=== PATIENT | female | born 1960 | race Caucasian/White ===

== ENCOUNTER 2018-12-04 08:32 | Day surgery (SDC) | payer MEDICAID ==
[2018-12-04] MEDS ORDERED: LR 1,000 ML IV ONE (08:55)
[2018-12-04 09:21] VITALS: BP 135/84
--- NOTE | 2018-12-04 23:42 | CPEKG ---
Test Reason : OPEN Blood Pressure : / mmHG Vent. Rate : 106 BPM Atrial Rate : 106 BPM P-R Int : 123 ms QRS Dur : 086 ms QT Int : 341 ms P-R-T Axes : 035 044 037 degrees QTc Int : 453 ms Sinus tachycardia Confirmed by Aquiles Reyez ([id number]) on 12/04/2018 11:41:38 PM Referred By: Confirmed By:Aquiles Reyez
== END 2018-12-04 09:00 | disposition home or self-care (01) ==
LOC: FSGY 08:32
PROVIDERS: ATTEND Internal Medicine Gastroenterology
DX: K74.60 Unspecified cirrhosis of liver (principal); R18.8 Other ascites; I85.00 Esophageal varices without bleeding; R68.81 Early satiety; D75.89 Other specified diseases of blood and blood-forming organs; R63.0 Anorexia; Z86.010 Personal history of colon polyps